=== PATIENT | female | born 1955 | race Caucasian/White ===

== ENCOUNTER 2020-11-01 17:22 | Emergency (ER) | payer SELFPAY ==
[2020-11-01 17:28] VITALS: BMI 27.6
[2020-11-01] MEDS ORDERED: ACETAMINOPHEN 325 MG TABLET (FP) PO ONE (18:32)
[2020-11-01] MEDS ORDERED: ACETAMINOPHEN 325 MG TABLET (FP) ONE (18:40)
[2020-11-01] MEDS ORDERED: MECLIZINE HCL 25 MG TABLET (FP) PO ONE (19:00)
[2020-11-01] MEDS ORDERED: MECLIZINE HCL 25 MG TABLET (FP) ONE (19:07)
[2020-11-01 19:12] VITALS: BP 152/94; PULSE 83; TEMP 98.1
== END 2020-11-01 19:12 | disposition home or self-care (01) ==
LOC: JER 17:22
DX: R42 Dizziness and giddiness (principal); R51.9 Headache, unspecified; G89.29 Other chronic pain
CPT/HCPCS: 99283-25